=== PATIENT | male | born 1935 | race Caucasian/White ===

== ENCOUNTER 2021-08-11 15:45 | Emergency (ER) | payer OTHER ==
[~2021-08-11] VITALS: Ht 177.8 cm; Wt 77.6 kg
--- NOTE | 2021-08-11 15:51 | NUR ---
PT [facility], PER [facility] REPORT, NURSE UNABLE TO REPLACED F/C. 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 STABLE VITALS. AWAITING MD GREEN.
--- NOTE | 2021-08-11 16:15 | NUR ---
DR CRAY AT BEDSIDE FOR EVAL.
--- NOTE | 2021-08-11 16:35 | NUR ---
CALLED FACILITY MULTIPLE TIME UNABLE TO OBTAIN INFORMATION FROM [facility].
[2021-08-11] MEDS ORDERED: LIDOCAINE 2% JEL UROJET 10 ML MM ONE ×2 (16:41→17:30)
--- NOTE | 2021-08-11 17:21 | NUR ---
[facility] TRANSPORT ETA 1820 VIA [facility].
--- NOTE | 2021-08-11 19:00 | NUR ---
CALLED [facility] [phone] CARY TO GIVE AUTH FOR TRANSPORT BACK TO [facility].
--- NOTE | 2021-08-11 19:06 | NUR ---
JUAN ANTONIO FISCHER CALLED AND WILL ARRANGE TRANSPORT OFR PT TO BE DC.
--- NOTE | 2021-08-11 19:32 | NUR ---
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
--- NOTE | 2021-08-11 20:58 | NUR ---
SON KENA CAME TO SEE PATIENT. PATIENT WILL BE BROUGHT BACK TO THE [facility] VIA [facility].
--- NOTE | 2021-08-11 21:00 | NUR ---
[facility]SP[facility] UNIT 129 [facility]
[2021-08-11 21:15] VITALS: BP 128/81
== END 2021-08-11 21:21 ==
LOC: ER 16:02
DX: R33.9 Retention of urine, unspecified (principal); T83.091A Other mechanical complication of indwelling urethral catheter, initial encounter; F32.A Depression, unspecified; Z86.59 Personal history of other mental and behavioral disorders; Z86.73 Personal history of transient ischemic attack (TIA), and cerebral infarction without residual deficits; Z87.438 Personal history of other diseases of male genital organs
CPT/HCPCS: 51702; 99284; J3490